=== PATIENT | male | born 1980 | race Caucasian/White ===

== ENCOUNTER 2018-08-21 13:00 | Emergency (ER) | payer MEDICAID, OTHER ==
[2018-08-21 13:49] LABS: ADD MAN DIFF? NO
[2018-08-21 13:54] LABS: BASOPHILS % 0.3 % (0.0-2.0); EOSINOPHILS # 0.1 10^3/ul (0.0-0.5); EOSINOPHILS % 0.9 % (0.0-7.0); HEMATOCRIT 44.5 % (42.0-52.0); HEMOGLOBIN 15.2 g/dl (14.0-18.0); LYMPHOCYTES # 1.7 10^3/ul (0.8-2.9); LYMPHOCYTES % 20.1 % (15.0-51.0); MEAN CORPUSCULAR HEMOGLOBIN 29.9 pg (29.0-33.0); MEAN CORPUSCULAR HGB CONC 34.2 g/dl (32.0-37.0); MEAN CORPUSCULAR VOLUME 87.4 fl (82.0-101.0); MONOCYTE # 0.4 10^3/ul (0.3-0.9); NEUTROPHIL # 6.4 10^3/ul (1.6-7.5); NEUTROPHILS % 73.4 % (39.0-77.0); PLATELET COUNT 201 10^3/UL (140-415); RED BLOOD COUNT 5.09 10^6/ul (4.70-6.10); RED CELL DISTRIBUTION WIDTH 13.2 % (11.5-14.5)
[2018-08-21 13:54] LABS: WHITE BLOOD COUNT 8.7 10^3/ul (4.8-10.8)
[2018-08-21] MEDS: KETOROLAC 30 MG INJ IV (13:59)
[2018-08-21 14:12] LABS: ALANINE AMINOTRANSFERASE 42 IU/L (13-69); ALBUMIN 4.4 g/dl (3.3-4.9); ALBUMIN/GLOBULIN RATIO 1.29; ALKALINE PHOSPHATASE 89 IU/L (42-121); ANION GAP 10 (5-13); ASPARTATE AMINO TRANSFERASE 31 IU/L (15-46); BILIRUBIN,INDIRECT 0.4 mg/dl (0-1.1); BILIRUBIN,TOTAL 0.4 mg/dl (0.2-1.3); BLOOD UREA NITROGEN 14 mg/dl (7-20); CALCIUM 9.2 mg/dl (8.4-10.2); CARBON DIOXIDE 28 mmol/L (21-31); CHLORIDE 104 mmol/L (97-110); CREATININE 1.02 mg/dl (0.61-1.24); Estimated GFR > 60 mL/min (>60); GLUCOSE 113 mg/dl (70-220); POTASSIUM 3.9 mmol/L (3.5-5.1); SODIUM 142 mmol/L (135-144); TOTAL PROTEIN 7.8 g/dl (6.1-8.1)
[2018-08-21 14:19] LABS: ETHANOL < 10.0 mg/dl
[2018-08-21 14:23] LABS: TROPONIN-I < 0.012 ng/ml (0.000-0.120)
== END 2018-08-21 16:03 | disposition home or self-care (01) ==
LOC: E/R 13:00
DX: R07.9 Chest pain, unspecified (principal)
CPT/HCPCS: 36415; 71045; 80053; 80307; 84484; 85025; 93005; 96374; 99285-25

== ENCOUNTER 2018-11-06 12:39 | Emergency (ER) | payer SELFPAY, MEDICAID ==
[2018-11-06] MEDS: ACETAMINOPHEN 325 MG TAB PO (13:06)
== END 2018-11-06 14:03 | disposition home or self-care (01) ==
LOC: FTE 12:39
DX: R51 Headache (principal)
CPT/HCPCS: 70450; 99284-25